=== PATIENT | male | born 1970 | race Caucasian/White ===

== ENCOUNTER 2016-12-17 12:16 | Emergency (ER) | payer OTHER ==
[2016-12-17] MEDS ORDERED: ACETAMINOPHEN 500 MG TABLET ONE (12:41)
[2016-12-17] MEDS ORDERED: IBUPROFEN 800 MG TABLET ONE (12:41)
--- NOTE | 2016-12-17 12:55 | RAD ---
EXAMINATION:SHOULDER-RIGHT 2 OR MORE VIEWS Clinical indication: Right shoulder injury. Right shoulder pain. Initial encounter. Comparisons:None Findings: No fracture is identified. The glenohumeral joint is maintained. The acromioclavicular joint is unremarkable. The adjacent soft tissues are unremarkable. IMPRESSION: Normal radiographic evaluation of the right shoulder.
== END 2016-12-17 13:02 | disposition home or self-care (01) ==
LOC: ED 12:16
DX: S43.101A Unspecified dislocation of right acromioclavicular joint, initial encounter (principal); X50.0XXA Overexertion from strenuous movement or load, initial encounter
CPT/HCPCS: 73030; 99283 ×2; A9270 ×2